=== PATIENT | female | born 1990 | race Caucasian/White ===

== ENCOUNTER 2018-10-07 20:10 | Emergency (ER) | payer BC ==
[~2018-10-07] VITALS: Ht 167.6 cm; Wt 77.3 kg
[2018-10-07] MEDS ORDERED: PRENATAL 191 TAB PO (20:36)
[2018-10-07] MEDS ORDERED: ALLERCLEAR10 MG PO (20:36)
[2018-10-07 21:00] VITALS: BP 138/79
== END 2018-10-07 21:00 | disposition home or self-care (01) ==
LOC: ED 20:10
DX: S61.210A Laceration without foreign body of right index finger without damage to nail, initial encounter (principal); W26.0XXA Contact with knife, initial encounter; Y93.G1 Activity, food preparation and clean up; Y92.009 Unspecified place in unspecified non-institutional (private) residence as the place of occurrence of the external cause